=== PATIENT | female | born 1985 | race American Indian/Alaskan Native ===

== ENCOUNTER 2019-09-03 05:22 | Emergency (ER) | payer BC ==
[2019-09-03] MEDS ORDERED: DECADRON IM ONE (05:56)
--- NOTE | 2019-09-03 06:04 | Emergency Department Report ---
- General Chief Complaint: Dyspnea/Respdistress Stated Complaint: KRYSTLE/COLD SYMPTOMS Time Seen by Provider: 09/03/19 05:47 Source: patient Mode of arrival: Ambulatory Limitations: No Limitations - History of Present Illness Initial Comments: Patient is a 34-year-old female who presents emergency room with complaints of URI symptoms that began a couple days ago. She has associated dry cough, congestion, itchy dry throat, itchy eyes, shortness of breath due to her congestion. she denies any fever, chills, ear drainage, productive cough, CP. She denies any sick contacts. past medical history of hypertension. She denies any allergies medications. - Related Data Previous Rx's Medication Instructions Recorded Last Taken Type Amlodipine Besylate [Norvasc] 10 mg PO DAILY #30 tablet 05/04/18 Unknown Rx HYDROcodone/APAP 5-325 [[place] 2 each PO Q6H PRN #20 tablet 05/04/18 Unknown Rx 5-325 mg TAB] Pantoprazole [Protonix TAB] 40 mg PO DAILY #30 tablet 05/04/18 Unknown Rx Triamter/Hctz 37.5-25 mg 1 each PO QAM #30 tablet 05/04/18 Unknown Rx [Maxzide-25] Benzonatate [Tessalon Perles] 100 mg PO Q8HR PRN #14 capsule 09/03/19 Unknown Rx Cetirizine HCl [Zyrtec 10mg tab] 10 mg PO DAILY #14 tablet 09/03/19 Unknown Rx Fluticasone [Flonase] 1 spray NS QDAY #1 bottle 09/03/19 Unknown Rx Ketotifen Fumarate [Zaditor] 5 ml OP BID PRN #1 bottle 09/03/19 Unknown Rx Nystas/Diphen/Xyl Visc/Mylanta 30 ml MM BID PRN #480 ml 09/03/19 Unknown Rx [Magic Mouthwash] guaiFENesin ER [Mucinex ER] 600 mg PO Q12H #20 tablet.er 09/03/19 Unknown Rx Allergies Allergy/AdvReac Type Severity Reaction Status Date / Time morphine AdvReac Shortness Verified 05/03/18 10:23 of Breath ED Review of Systems ROS: Stated complaint: KRYSTLE/COLD SYMPTOMS Other details as noted in HPI Comment: All other systems reviewed and negative ED Past Medical Hx - Past Medical History Previous Medical History?: Yes Hx Hypertension: Yes Hx Congestive Heart Failure: No Hx Diabetes: No Hx Asthma: No Hx COPD: No - Surgical History Past Surgical History?: Yes Hx Cholecystectomy: Yes Additional Surgical History: pins to bilateral hips - Social History Smoking Status: Never Smoker Substance Use Type: None - Medications Home Medications: Home Medications Medication Instructions Recorded Confirmed Last Taken Type Amlodipine Besylate [Norvasc] 10 mg PO DAILY #30 tablet 05/04/18 Unknown Rx HYDROcodone/APAP 5-325 [[place] 2 each PO Q6H PRN #20 tablet 05/04/18 Unknown Rx 5-325 mg TAB] Pantoprazole [Protonix TAB] 40 mg PO DAILY #30 tablet 05/04/18 Unknown Rx Triamter/Hctz 37.5-25 mg 1 each PO QAM #30 tablet 05/04/18 Unknown Rx [Maxzide-25] Benzonatate [Tessalon Perles] 100 mg PO Q8HR PRN #14 capsule 09/03/19 Unknown Rx Cetirizine HCl [Zyrtec 10mg tab] 10 mg PO DAILY #14 tablet 09/03/19 Unknown Rx Fluticasone [Flonase] 1 spray NS QDAY #1 bottle 09/03/19 Unknown Rx Ketotifen Fumarate [Zaditor] 5 ml OP BID PRN #1 bottle 09/03/19 Unknown Rx Nystas/Diphen/Xyl Visc/Mylanta 30 ml MM BID PRN #480 ml 09/03/19 Unknown Rx [Magic Mouthwash] guaiFENesin ER [Mucinex ER] 600 mg PO Q12H #20 tablet.er 09/03/19 Unknown Rx ED Physical Exam - General Limitations: No Limitations General appearance: alert, in no apparent distress - Head Head exam: Present: atraumatic, normocephalic - Eye Eye exam: Present: normal appearance, PERRL, EOMI. Absent: conjunctival injection - ENT ENT exam: Present: normal orophraynx, mucous membranes moist, TM's normal bilaterally, normal external ear exam, other (no tonsillar exudates, no erythema, no tonsillar hypertrophy, uvula is midline no uvular edema, pale boggy turbinates with clear nasal drainage) - Respiratory Respiratory exam: Present: normal lung sounds bilaterally. Absent: respiratory distress, wheezes, rales, rhonchi, stridor, chest wall tenderness, accessory muscle use, decreased breath sounds, prolonged expiratory - Cardiovascular Cardiovascular Exam: Present: regular rate, normal rhythm, normal heart sounds. Absent: systolic murmur, diastolic murmur, rubs, gallop - Neurological Exam Neurological exam: Present: alert, oriented X3 - Psychiatric Psychiatric exam: Present: normal affect, normal mood - Skin Skin exam: Present: warm, dry, intact ED Course Vital Signs 09/03/19 09/03/19 05:32 06:04 Temperature 98.4 F 98.2 F Pulse Rate 98 H 93 H Respiratory 20 18 Rate Blood Pressure 152/102 109/72 [Right] O2 Sat by Pulse 98 98 Oximetry ED Medical Decision Making - Medical Decision Making Patient is a 34-year-old female who presents emergency room with complaints of URI symptoms that began a couple days ago. She has associated dry cough, congestion, itchy dry throat, itchy eyes, shortness of breath due to her congestion. she denies any fever, chills, ear drainage, productive cough, CP. She denies any sick contacts. past medical history of hypertension. She denies any allergies medications. VSS, pt is afebrile.. on exam: no tonsillar exudates, no erythema, no tonsillar hypertrophy, uvula is midline no uvular edema, pale boggy turbinates with clear nasal drainage, breath sounds are clear bilaterally without w/r/r. pt given dexamethasone injection. pt is PERC criteria negative for PE. PNA unlikely as pt is afebrile, no productive cough, and clear breath sounds. pts examination consistent with viral URI/allergies. will tx pt symptomatically. advised pt to Please take medication as prescribed. please increase your fluid intake. Use warm salt water gargles and throat spray [id number]. Follow up with a primary care doctor for reexamination in 2-3 days. return to the emergency room for any new or worsening symptoms. - Differential Diagnosis URI, PNA, bronchitis, viral syndrome, alleriges Critical care attestation.: If time is entered above; I have spent that time in minutes in the direct care of this critically ill patient, excluding procedure time. ED Disposition Clinical Impression: Upper respiratory infection Qualifiers: URI type: unspecified URI Qualified Code(s): J06.9 - Acute upper respiratory infection, unspecified Disposition: DC-01 TO HOME OR SELFCARE Is pt being admited?: No Does the pt Need Aspirin: No Condition: Stable Instructions: Upper Respiratory Infection (ED) Additional Instructions: Please take medication as prescribed. please increase your fluid intake. Use warm salt water gargles and throat spray [id number]. Follow up with a primary care doctor for reexamination in 2-3 days. return to the emergency room for any new or worsening symptoms. Prescriptions: Fluticasone [Flonase] 1 spray NS QDAY #1 bottle Nystas/Diphen/Xyl Visc/Mylanta [Magic Mouthwash] 30 ml MM BID PRN #480 ml PRN Reason: sore throat guaiFENesin ER [Mucinex ER] 600 mg PO Q12H #20 tablet.er Benzonatate [Tessalon Perles] 100 mg PO Q8HR PRN #14 capsule PRN Reason: Cough Ketotifen Fumarate [Zaditor] 5 ml OP BID PRN #1 bottle PRN Reason: itchy/dry eyes Cetirizine HCl [Zyrtec 10mg tab] 10 mg PO DAILY #14 tablet Referrals: [facility] [Provider Group] - 2-3 Days Forms: Work/School Release Form(ED) Time of Disposition: 06:00 Print Language: POLISH
[2019-09-03 06:05] VITALS: BP 109/72
== END 2019-09-03 06:22 | disposition home or self-care (01) ==
LOC: ED 05:22
DX: J06.9 Acute upper respiratory infection, unspecified (principal); I10 Essential (primary) hypertension; Z90.49 Acquired absence of other specified parts of digestive tract; Z79.899 Other long term (current) drug therapy; Z88.5 Allergy status to narcotic agent
CPT/HCPCS: 96372; 99282; J1100

== ENCOUNTER 2021-06-27 09:12 | Emergency (ER) | payer BC ==
[2021-06-27 09:36] VITALS: BP 185/124
== END 2021-06-27 10:15 | disposition left against medical advice (07) ==
LOC: ED 09:12
DX: R07.9 Chest pain, unspecified (principal); Z53.21 Procedure and treatment not carried out due to patient leaving prior to being seen by health care provider
CPT/HCPCS: 36415; 71046; 80053; 84484; 85025; 93005

== ENCOUNTER 2021-08-08 09:55 | Emergency (ER) | payer BC ==
[2021-08-08] MEDS ORDERED: KETOROLAC 60 MG/2 ML INJ IM ONE (10:10)
[2021-08-08] MEDS ORDERED: predniSONE 20 MG TAB PO ONE (10:10)
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
[2021-08-08 11:25] VITALS: BP 160/99
== END 2021-08-08 11:25 | disposition home or self-care (01) ==
LOC: ED 09:55
DX: S39.012A Strain of muscle, fascia and tendon of lower back, initial encounter (principal); Z90.49 Acquired absence of other specified parts of digestive tract; I10 Essential (primary) hypertension; Z88.5 Allergy status to narcotic agent; Z88.8 Allergy status to other drugs, medicaments and biological substances
CPT/HCPCS: 96372; 99282; J1885; J7512

== ENCOUNTER 2021-09-18 23:48 | Emergency (ER) | payer BC ==
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
[2021-09-19 04:50] VITALS: BP 129/81
== END 2021-09-19 05:10 | disposition home or self-care (01) ==
LOC: ED 23:48
DX: R50.9 Fever, unspecified (principal); Z00.00 Encounter for general adult medical examination without abnormal findings; I10 Essential (primary) hypertension; Z88.5 Allergy status to narcotic agent; Z88.6 Allergy status to analgesic agent
CPT/HCPCS: 99282

== ENCOUNTER 2021-10-13 21:49 | Emergency (ER) | payer BC ==
--- NOTE | 2021-10-13 23:18 | XRay Report ---
CHEST 2 VIEWS INDICATION / CLINICAL INFORMATION: Chest Pain. COMPARISON: 06/27/21. FINDINGS: SUPPORT DEVICES: None. HEART / MEDIASTINUM: There is borderline cardiomegaly. Pulmonary vasculature is probably normal for t echnique and the size of the patient. The aorta is normal in caliber. LUNGS / PLEURA: No significant pulmonary or pleural abnormality. No pneumothorax. ADDITIONAL FINDINGS: No significant additional findings. IMPRESSION: No acute abnormality or significant change. Signer Name: Brice Jimenez MD Signed: 10/13/2021 11:13 PM Workstation Name: [id number]
[2021-10-13 23:19] LABS: Basophils % (Auto) 0.4 % (0.0-1.8); Eosinophils # (Auto) 0.1 K/mm3 (0.0-0.4); Eosinophils % (Auto) 1.6 % (0.0-4.3); Lymphocytes # (Auto) 1.9 K/mm3 (1.2-5.4); Lymphocytes % (Auto) 20.6 % (13.4-35.0); Mean Corpuscular HGB Conc 29 % (30-34); Monocytes # (Auto) 0.7 K/mm3 (0.0-0.8); Platelet Count 355 K/mm3 (140-440); Red Blood Count 5.46 M/mm3 (3.65-5.03); Red Cell Distribution Width 19.5 % (13.2-15.2)
[2021-10-13 23:26] LABS: INR 0.96 (0.87-1.13)
[2021-10-13 23:27] LABS: Partial Thromboplastin Time 28.6 Sec. (24.2-36.6)
[2021-10-13 23:38] LABS: Alanine Aminotransferase 20 units/L (7-56); Albumin 3.9 g/dL (3.9-5); BUN/Creatinine Ratio 19; Blood Urea Nitrogen 15 mg/dL (7-17); Calcium 9.3 mg/dL (8.4-10.2); Hemolysis Index 0
[2021-10-13 23:50] LABS: Hematocrit 36.1 % (30.3-42.9); Hemoglobin 10.6 gm/dl (10.1-14.3)
[2021-10-13 23:51] LABS: Mean Corpuscular Volume 66 fl (79-97)
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
[2021-10-14] MEDS ORDERED: FUROSEMIDE 20 MG TAB PO ONE (01:06)
[2021-10-14 02:15] VITALS: BP 149/88
--- NOTE | 2021-10-15 12:07 | Electrocardiograph Report ---
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 Electronically Signed On 10-15-2021 12:07:37 EST by Melchor Mccullough
== END 2021-10-14 02:12 | disposition home or self-care (01) ==
LOC: ED 21:49
DX: R60.0 Localized edema (principal); I10 Essential (primary) hypertension; R79.1 Abnormal coagulation profile; Z90.49 Acquired absence of other specified parts of digestive tract; Z79.899 Other long term (current) drug therapy; Z88.6 Allergy status to analgesic agent; Z88.5 Allergy status to narcotic agent
CPT/HCPCS: 36415; 71046; 80053; 83880; 84484; 85025; 85610; 85730; 93005; 99284

== ENCOUNTER 2021-11-10 04:12 | Emergency (ER) | payer BC ==
--- NOTE | 2021-11-10 06:52 | XRay Report ---
CHEST 2 VIEWS INDICATION / CLINICAL INFORMATION: coug fever. COMPARISON: 10/13/2021 FINDINGS: SUPPORT DEVICES: None. HEART / MEDIASTINUM: No significant abnormality. LUNGS / PLEURA: Scattered patchy airspace opacities in bilateral lungs. No pneumothorax. ADDITIONAL FINDINGS: No significant additional findings. IMPRESSION: 1. Scattered patchy airspace opacities in bilateral lungs suggesting infectious process. Signer Name: Donavon Castro DO Signed: 11/10/2021 6:48 AM Workstation Name: [id number]
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
[2021-11-10 07:22] VITALS: BP 163/119
== END 2021-11-10 07:15 | disposition home or self-care (01) ==
LOC: ED 04:12
DX: Z20.822 Contact with and (suspected) exposure to COVID-19 (principal); B34.9 Viral infection, unspecified; I10 Essential (primary) hypertension; Z90.49 Acquired absence of other specified parts of digestive tract
CPT/HCPCS: 71046; 99283

== ENCOUNTER 2022-05-24 15:17 | Emergency (ER) | payer BC | END 2022-05-25 02:16 | disposition left against medical advice (07) | LOC: ED 15:17 | DX: Z11.3 Encounter for screening for infections with a predominantly sexual mode of transmission (principal); Z53.21 Procedure and treatment not carried out due to patient leaving prior to being seen by health care provider ==

== ENCOUNTER 2022-07-26 19:15 | Emergency (ER) | payer BC ==
[2022-07-26] MEDS ORDERED: predniSONE 20 MG TAB PO ONE (23:36)
[2022-07-26] MEDS ORDERED: ALBUTEROL 2.5 MG/3 ML NEBU IH ONE (23:36)
[2022-07-26] MEDS ORDERED: traMADol 50 MG TAB PO ONE (23:36)
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
--- NOTE | 2022-07-27 01:38 | XRay Report ---
CHEST 2 VIEWS INDICATION / CLINICAL INFORMATION: sob fever cough. COMPARISON: Chest x-ray 11/10/2021 FINDINGS: SUPPORT DEVICES: None. HEART / MEDIASTINUM: Mild to moderate cardiomegaly stable. LUNGS / PLEURA: Low lung volumes. Underpenetrated study. No focal consolidation. Prominent central va sculature may in part reflect crowding mild pulmonary edema not excluded. BONES: No significant osseous abnormality. ADDITIONAL FINDINGS: No significant additional findings. IMPRESSION: 1. Mild pulmonary edema is not excluded. Vascular congestive changes are not excluded. Signer Name: Steve Nieto II, MD Signed: 07/27/2022 1:34 AM Workstation Name: [id number]
[2022-07-27 03:25] VITALS: BP 151/102
== END 2022-07-27 03:25 | disposition home or self-care (01) ==
LOC: ED 19:15
DX: J45.909 Unspecified asthma, uncomplicated (principal); I10 Essential (primary) hypertension; Z88.6 Allergy status to analgesic agent; Z90.49 Acquired absence of other specified parts of digestive tract
CPT/HCPCS: 71045; 94640; 99283